=== PATIENT | male | born 1965 | race Caucasian/White ===

== ENCOUNTER 2020-08-04 06:28 | Day surgery (SDC) | payer BC ==
[2020-08-04] MEDS ORDERED: Dextrose 5%-Lactated Ringers 1,000 ML IV SCH (06:45)
[2020-08-04] MEDS ORDERED: fentaNYL 100 MCG/2 ML SDV ONE (07:28)
[2020-08-04] MEDS ORDERED: Propofol 200 MG/20 ML SDV ONE (07:28)
[2020-08-04] MEDS ORDERED: Midazolam 1 MG/ML 2 ML SDV ONE (07:29)
--- NOTE | 2020-08-13 13:34 | OR ---
DATE OF PROCEDURE: 08/04/2020 SURGEON: Hilton Lind MD PREOPERATIVE DIAGNOSIS: History of colon polyps. POSTOPERATIVE DIAGNOSIS: Single recurrent polyp in mid sigmoid colon. OPERATIVE PROCEDURE: Flexible colonoscopy with polypectomy by snare technique. ANESTHESIA: IV sedation. INDICATION FOR PROCEDURE: This is a 55-year-old male presenting for followup colonoscopy. He has a history of colon polyps in the past. Plan is to proceed with a colonoscopy with biopsies and/or polypectomy as indicated. Potential risks including bleeding and perforation were discussed and the patient wishes to proceed. DETAILS OF PROCEDURE: The patient was taken to the operating room and placed in a left lateral decubitus position. IV sedation was administered after which the initial digital rectal exam was performed and it was unremarkable. Colonoscope was then passed into the rectum with retroflexion revealing uncomplicated hemorrhoidal columns. Scope was eventually passed to the level of cecum. The prep was somewhat marginal. Fair bit of liquid and some scattered solid stool obscured at least some portions of the mucosal surfaces. To that level, there were no diverticula or areas of colitis identified. A single polyp measuring around 4 mm was located in the mid sigmoid colon, i.e., around 35 cm from the dentate line. This was encircled with the snare and then the base cauterized, and the specimen removed and sent for histologic evaluation. There was no bleeding noted from the polypectomy site, and the scope was then withdrawn, and the procedure concluded. Recommendation would be to repeat the colonoscopy in 3 years. Hilton Lind MD /[id number]
== END 2020-08-04 10:10 | disposition home or self-care (01) ==
LOC: JP.SDS 06:28
PROVIDERS: ATTEND Surgery
DX: Z12.11 Encounter for screening for malignant neoplasm of colon (principal); D12.5 Benign neoplasm of sigmoid colon; K64.9 Unspecified hemorrhoids; G47.33 Obstructive sleep apnea (adult) (pediatric); I10 Essential (primary) hypertension; E66.9 Obesity, unspecified; Z88.8 Allergy status to other drugs, medicaments and biological substances; Z68.41 Body mass index [BMI] 40.0-44.9, adult
CPT/HCPCS: 45385; 88305; J2250; J2704; J3010; J7121

== ENCOUNTER → 2025-02-16 | Day surgery (SDC) | payer BC ==
[~2025-02-16] MED LIST: Midazolam 1 MG/ML 2 ML SDV ONE; Propofol 200 MG/20 ML SDV ONE; fentaNYL 100 MCG/2 ML SDV ONE
[2025-02-16] MEDS: Lactated Ringers 1,000 ML IV SCH (07:22)
== END ==
LOC: JP.SDS 06:26
PROVIDERS: ATTEND Surgery
DX: Z12.11 Encounter for screening for malignant neoplasm of colon (principal); D12.3 Benign neoplasm of transverse colon; D12.0 Benign neoplasm of cecum; Z86.0100 Personal history of colon polyps, unspecified
CPT/HCPCS: 00811; 45380; 45385; 88305; J2250; J2704; J3010; J7120